=== PATIENT | male | born 1975 ===

== ENCOUNTER 2018-03-04 10:01 | Outpatient (CLI) | payer OTHER ==
[~2018-03-04] VITALS: Ht 177.8 cm; Wt 86.2 kg
[2018-03-04] MEDS ORDERED: DERMOTIC20 ML OTIC (11:56)
== END 2018-03-04 10:15 | disposition home or self-care (01) ==
LOC: OFIC 805 10:01
DX: J31.0 Chronic rhinitis (principal); L29.8 Other pruritus

== ENCOUNTER 2022-03-01 08:00 | Day surgery (SDC) | payer OTHER ==
[~2022-03-01 08:00] MED LIST: DERMOTIC20 ML OTIC
== END 2022-03-01 18:10 | disposition home or self-care (01) ==
LOC: CIR.AMB 08:00
PROVIDERS: ATTEND Otolaryngology Otology & Neurotology
DX: D14.0 Benign neoplasm of middle ear, nasal cavity and accessory sinuses (principal); Z20.822 Contact with and (suspected) exposure to COVID-19; Z88.0 Allergy status to penicillin; Z88.6 Allergy status to analgesic agent